=== PATIENT | male | born 1935 | race Caucasian/White ===

== ENCOUNTER → 2018-05-12 | Outpatient (CLI) | payer MEDICARE ==
[~2018-05-12] VITALS: Ht 160 cm; Wt 83.0 kg
[~2018-05-12] MED LIST: ATOR40TA70 PO; FAMO20TA3 PO; LOSA50TA63 PO; METO-387 PO; TAMS0.4C98 PO
== END ==
LOC: PREOP 05:42
PROVIDERS: ATTEND Specialist
DX: Z01.818 Encounter for other preprocedural examination (principal)

== ENCOUNTER 2018-05-14 08:10 | Day surgery (SDC) | payer MEDICARE ==
[~2018-05-14] VITALS: Ht 160 cm; Wt 83.0 kg
[2018-05-14 08:54] VITALS: BP 152/99
[2018-05-14] MEDS ORDERED: POVIDONE (BETADINE) OPHTH SOLN 5% 30 ML OP ONE (09:00)
[2018-05-14] MEDS ORDERED: LIDOCAINE PF 1% 2 ML AMP IR PRN (09:00)
[2018-05-14] MEDS ORDERED: TIMOLOL MALEATE 0.5% 5 ML (TIMOPTIC) BTL OU PRN (09:00)
[2018-05-14] MEDS ORDERED: MOXIFLOXACIN OPHTH SOLN 5 MG/ML 0.3 ML SYRINGE OP ONE (09:00)
[2018-05-14] MEDS: TETRACAINE 0.5% OPHTH SOLN 4 ML BTL (SINGLE DOSE ONLY) OU PRN ×4 (09:04→09:25)
[2018-05-14] MEDS: PHENYLEPHRINE 10% OPHTH (NEO-SYN) 5 ML BTL OU SCH ×3 (09:12→09:25)
[2018-05-14] MEDS: CYCLOPENTOLATE 1% (CYCLOGYL) 2 ML DROPS OP SCH ×3 (09:12→09:25)
[2018-05-14] MEDS ORDERED: MIDAZOLAM 2 MG/2 ML (VERSED) VIAL ONE (09:18)
--- NOTE | 2018-05-14 09:32 | Ophthalmologist Pre-Op Note ---
Pre-Operative Progress Note H&P Reviewed The H&P was reviewed, patient examined and no changes noted. Date H&P Reviewed: May 14, 2018 Time H&P Reviewed: 09:32 Pre-Op Dx Cataract, Left Eye MARK GAN MD May 14, 2018 09:32
--- NOTE | 2018-05-14 09:59 | Ophthalmology Operative Report ---
Cataract, Miotic Pupil PREOPERATIVE DIAGNOSIS: 1. Cataract Left Eye 2. Miotic Pupil/IFIS POSTOPERATIVE DIAGNOSIS: 1. Cataract Left Eye 2. Miotic Pupil/IFIS PROCEDURE: 1. Cataract removal and placement of posterior chamber implant, left eye 2. Pupillary expansion with malyugin ring SURGEON: Marco Antonio Gan ANESTHESIA: Topical with sedation COMPLICATIONS: None ESTIMATED BLOOD LOSS: Minimal DESCRIPTION OF PROCEDURE: After proper informed consent was obtained, the patient, a 82 male, was taken to the Operating Room and the left eye was anesthetized with Tetracaine. The eye was then prepped and draped in the usual manner. A wire lid speculum was placed. A paracentesis was made at the left hand position. Preservative free lidocaine was injected into anterior chamber followed by viscoelastic. A clear corneal incision was made in the temporal position. The malyugin ring was injected into the anterior chamber and the pupil was dilated. A capsulorrhexis was preformed and the central nuclear and cortical material were removed. The posterior capsule was polished and Earle [id number] IOL was placed into the capsular bag. The myalgian ring was removed. The residual viscoelastic was aspirated and the balanced saline solution was injected into the anterior chamber. Moxifloxacin was injected into the anterior chamber. The wound was checked and found to be water tight. The patient tolerated the procedure well without complications. [Limbal Relaxing Incision placed ] [ ]mm at [ ]. MARCO ANTONIO GAN MD May 14, 2018 09:59
[2018-05-14 10:12] VITALS: BP 163/93
[2018-05-14] MEDS ORDERED: acetaZOLAMIDE ER 500 MG CAP (DIAMOX SEQUELS) PO ONE (10:30)
--- NOTE | 2018-05-14 12:14 | Anesthesia-General Post-Op ---
MAC Patient Condition Mental Status/LOC: Same as Preop Cardiovascular: Satisfactory Nausea/Vomiting: Absent Respiratory: Satisfactory Pain: Controlled Complications: Absent Post Op Complications Complications None Follow Up Care/Instructions Patient Instructions None needed. Anesthesiology Discharge Order Discharge Order Patient is doing well, no complaints, stable vital signs, no apparent adverse anesthesia problems. No complications reported per nursing. RONEN MONTALVO CRNA May 14, 2018 12:14
--- OUTSIDE RECORDS SUMMARY | 2018-05-16 08:50 | XMS REPORT ---
Author Author KISHA ANDINO [facility] Address [address] [place] [address] Care Team Providers Care Adjunct Professor Name Role Phone KISHA ANDINO Unavailable PROBLEMS Type Condition ICD9-CM Code UHV05-DF Code Onset Dates Condition Status SNOMED Code Problem Urinary urgency R39.15 Active 46437883 Problem Encounter for Zostavax administration Z23 Active 912254199 Problem Colonoscopy refused Z53.20 Active 620015182 Problem Hypertension, essential I10 Active 42792887 ALLERGIES No Information SOCIAL HISTORY Never Assessed PLAN OF CARE VITAL SIGNS MEDICATIONS Medication Instructions Dosage Frequency Start Date End Date Duration Status Atorvastatin Calcium 40 mg Orally Once a day 1 tablet 24h Aug, 0 days Active Famotidine 20 mg Orally 2 times a day 1 tablet 12h 0 days Active RESULTS No Results PROCEDURES No Known procedures IMMUNIZATIONS No Known Immunizations MEDICAL (GENERAL) HISTORY Type Description Date Medical History cardiovascular disorder CT 2012 Medical History hypertension Medical History diverticulitis Medical History urologic disorder, enlarged prostate Medical History CAD Medical History hyperlipidemia Surgical History cholecystectomy 2001 Surgical History hernia repair 07/2013 Surgical History coronary angiography 2012 Hospitalization History dehydration and acute renal failure 09/2013 Hospitalization History hernia 2012 Hospitalization History heart attack 2012
--- OUTSIDE RECORDS SUMMARY | 2018-05-16 08:51 | XMS REPORT ---
Author Author KISHA ANDINO [facility] eClinicalWorks Address Unknown Phone Unavailable Care Team Providers Care Group Work Program Aide Name Role Phone KISHA ANDINO CP Unavailable Allergies, Adverse Reactions, Alerts Substance Reaction Event Type N.K.D.A. Info Not Available Non Drug Allergy Problems Problem Type Condition ICD-9 Code Onset Dates Condition Status Problem Need for prophylactic vaccination and inoculation, Influenza V04.81 Active Problem Coronary atherosclerosis of unspecified type of vessel, grayling or graft 414.00 Active Problem Counseling on substance use and abuse V65.42 Active Problem Hyperlipidemia 272.4 Active Assessment Tobacco abuse 305.1 Active Problem Counseling on injury prevention V65.43 Active Assessment Tobacco abuse counseling V65.42 Active Problem Hypertension, essential 401.9 Active Problem Unspecified urinary incontinence 788.30 Active Problem 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 Active Problem Dizziness and giddiness 780.4 Active Problem Unspecified essential hypertension 401.9 Active Problem Unspecified acute renal failure 584.9 Active Problem Pain in soft tissues of limb 729.5 Active Assessment Influenza vaccine administered V04.81 Active Assessment Hypertension, essential 401.9 Active Problem Special screening for malignant neoplasms, colon V76.51 Active Problem Elevated blood pressure reading without diagnosis of hypertension 796.2 Active Problem Effusion of hand joint 719.04 Active Problem Inguinal hernia without mention of obstruction or gangrene, unilateral or unspecified, (not specified as recurrent) 550.90 Active Problem Overweight 278.02 Active Problem Hypertrophy (benign) of prostate without urinary obstruction and other lower urinary tract symptoms [LUTS] 600.00 Active Medications Medication Code System Code Instructions Start Date End Date Status Dosage Flomax [facility] [address]-14 0.4 MG Orally Once a day Mar 27, 2014 1 capsule Lisinopril [facility] [address]-22 20 MG Orally Once a day October 13, 2013 1 tablet Atorvastatin Calcium [facility] [address]-20 20 MG Orally Once a day August 16, 2014 1 tablet Famotidine [facility] 22877792506 20 MG take 1 tablet (20 mg) by oral route every 12 hours 20 mg twice daily Clopidogrel Bisulfate [facility] 30818772060 75 MG take 1 tablet (75 mg ) by oral route once daily 75 mg daily Aspir-81 [facility] [address]-81 Feb 24, 2013 by oral route one daily Metoprolol Succinate [facility] 0 25 mg oral Once a day May 26, 2014 1 tablet Procedures Procedure Coding System Code Date Office Visit, Est Pt., Level 3 CPT-4 95865 Nov 30, 2014 FLU VAC NO PRSV 4 [place] 3 YRS+ CPT-4 22988 Nov 30, 2014 [facility] V[facility] ESTABLISHED PATIENT CPT-4 G0467 Nov 30, 2014 SINGLE IMMUNIZATION ADMIN CPT-4 87983 Nov 30, 2014 Vital Signs Date/Time: Nov 30, 2014 Temperature 98 F Weight 164 lbs Height 66 in BMI 26.47 Index Blood Pressure Diastolic 90 mmHg Blood Pressure Systolic 150 mmHg Cardiac Monitoring Heart Rate 68 bpm Results No Known Results Immunizations Vaccine Administration Date FLUARIX QUAD (3 & UP)-2014Nov 30, 2014 Summary Purpose eClinicalWorks Submission
--- OUTSIDE RECORDS SUMMARY | 2018-05-16 08:51 | XMS REPORT ---
Author Author KISHA ANDINO [facility] eClinicalWorks Address Unknown Phone Unavailable Care Team Providers Care Bean Viner Name Role Phone KISHA ANDINO CP Unavailable Allergies, Adverse Reactions, Alerts Substance Reaction Event Type N.K.D.A. Info Not Available Non Drug Allergy Problems Problem Type Condition Code Onset Dates Condition Status Problem Encounter for Zostavax administration Z23 Active Problem Hypertension, essential I10 Active Problem Colonoscopy refused Z53.20 Active Assessment Encounter for Zostavax administration Z23 Active Assessment Encounter for immunization Z23 Active Assessment Hypertension, essential I10 Active Assessment Colonoscopy refused Z53.20 Active Medications Medication Code System Code Instructions Start Date End Date Status Dosage Zostavax [facility] [address]-70 70920 UNT/0.65ML Subcutaneous Once a day Dec as directed Metoprolol Succinate NDC 0 25 mg oral Once a day May 26, 2014 1 tablet Atorvastatin Calcium [facility] [address]-85 40 MG Orally Once a day August 16, 2014 1 tablet Famotidine [facility] 70846345859 20 MG take 1 tablet (20 mg) by oral route every 12 hours 20 mg twice daily Flomax [facility] [address]-28 0.4 MG Orally Once a day Mar 27, 2014 1 capsule Losartan Potassium [facility] [address]-93 50 MG Orally Once a day 1 tablet Procedures Procedure Coding System Code Date [facility] VISIT ESTABLISHED PATIENT CPT-4 G0467 Dec 26, 2015 Office Visit, Est Pt., Level 3 CPT-4 30578 Dec 26, 2015 [facility]-4 NOBLL Dec 26, 2015 FLUARIX QUAD P-FREE 3 AND UP .50 2015 CPT-4 49321 Dec 26, 2015 VENIPUNCT, ROUTINE* CPT-4 77851 Dec 26, 2015 SINGLE IMMUNIZATION ADMIN CPT-4 37073 Dec 26, 2015 Vital Signs Date/Time: Dec 26, 2015 Cardiac Monitoring Heart Rate 62 bpm Weight 178.3 lbs Height 66 in BMI 28.78 Index Blood Pressure Diastolic 94 mmHg Blood Pressure Systolic 160 mmHg Results Name Result Date Reference Range Unit Abnormality Flag ROUTINE VENIPUNCTURE Immunizations Vaccine Administration Date FLUARIX QUAD P-FREE 3 AND UP .50 2015Dec 26, 2015 Summary Purpose eClinicalWorks Submission
--- OUTSIDE RECORDS SUMMARY | 2018-05-16 08:51 | XMS REPORT ---
Author Author KISHA ANDINO Organization [facility] Address [address] [place] [address] Care Team Providers Care Crate Tier Name Role Phone KISHA ANDINO Unavailable PROBLEMS Type Condition ICD9-CM Code [id number] Code Onset Dates Condition Status SNOMED Code Problem Need for shingles vaccine Z23 Active 358652548 Problem Urinary urgency R39.15 Active 36465737 Problem Hypertension, essential I10 Active 73643689 Problem Encounter for Zostavax administration Z23 Active 371754692 Problem Colonoscopy refused Z53.20 Active 954836381 ALLERGIES No Known Allergies ENCOUNTERS Encounter Location Date Diagnosis [facility] [address] [id number] [id number] July, Hypertension, essential I10 [facility] [id number] [id number] July, Hypertension, essential I10 and Need for shingles vaccine Z23 [facility] [id number] [id number] July, [facility] [address] [id number][place] [id number] Jan, [facility] [id number][place] [id number] Jan, [facility] [address] [id number][place] [id number] Jan, Hypertension, essential I10 ; Colonoscopy refused Z53.20 and Encounter for immunization Z23 [facility] [address] [id number][place] [id number] Jun, Urinary urgency R39.15 and Hypertension, essential I10 [facility] [address] [id number][place] [id number] Jun, Hypertension, essential I10 [facility] [address] [id number][place] [id number] May, [facility] [address] [id number][place] [id number] May, Hypertension, essential I10 and Urinary urgency R39.15 [facility] [address] [id number][place] [address] May, Mixed hyperlipidemia E78.[address] [facility] [address] [id number][place] [id number] Jan, Hypertension, essential I10 [facility] [address] [id number][place] [id number] Dec, Hypertension, essential I10 ; Colonoscopy refused Z53.20 ; Encounter for Zostavax administration Z23 and Encounter for immunization Z23 [facility] [address] [id number][place] [id number] Dec, Hypertension, essential I10 and Mixed [facility] E78.2 [facility] [id number][place] [id number] Nov, Hypertension, essential 401.9 ; Influenza vaccine administered V04.81 ; Tobacco abuse 305.1 and Tobacco abuse counseling V65.[address] [facility] [address] [id number][place] [id number] Sep, [facility] [address] [id number], [place] [id number] Aug, Hyperlipidemia 272.[address] [facility] [address] [id number], [place] [id number] July, [facility] [address] [id number][place] [id number] July, [facility] [address] [facility] [id number] [place] [address] Jun, [facility] [address]00565100[place] [address] 13 Jun, 2014 [facility] [place] [facility] [address] [id number] [place] [address] 23 May, 2014 [facility] [place] [facility] [address] [id number] [place] [address] 23 May, 2014 [facility] [place] [facility] [address] [id number] [place] [address] 23 May, 2014 [facility] [place] [facility] [address] [id number] [place] [address] 23 May, 2014 [facility] [place] [facility] [address] [id number] [place] [address] 20 May, 2014 [facility] [place] [facility] [address] [id number] [place] [address] 20 May, 2014 [facility] [place] [facility] [address] [id number] [place] [address] 19 May, 2014 [facility] [place] [facility] [address] [id number] [place] [address] 19 May, 2014 [facility] [place] [facility] [address] [id number] [place] [address] May, [facility] [place] [facility] [address] [id number] [place] [address] May, [facility] [place] [facility] [address] [id number] [place] [address]209 May, [facility] [place] [facility] [address] [id number] [place] [address] May, [facility] [place] [facility] [address] [id number] [place] [address] Mar, [facility] [place] [facility] [address] [id number] [place] [address] Mar, [facility] [place] [facility] [address] [id number] [place] [address] Feb, [facility] [place] [facility] [address] [id number] [place] [address] Feb, [facility] [place] [facility] [address] [id number] [place] [address] Feb, [facility] [place] [facility] [address] [id number] [place] [address] Feb, [facility] [place] [facility] [address] [id number] [place] [address] Jan, [facility] [place] [facility] [address] [id number] [place] [address] Jan, [facility] [place] [facility] [address] [id number] [place] [address] Jan, [facility] [place] [facility] [address] [id number] [place] [address] Jan, [facility] [place] [facility] [address] [id number] [place] [address] Jan, [facility] [place] [facility] [address] [id number] [place] [address] Jan, [facility] [place] [facility] [address] [id number] [place] [address] Oct, [facility] [place] [facility] [address] [id number] [place] [address] Oct, [facility] [place] [facility] [address] [id number] [place] [address] Oct, [facility] [place] [facility] [address] [id number] [place] [address] Oct, [facility] [place] [facility] [address] [id number] [place] [address] Oct, [facility] [place] [facility] [address] [id number] [place] [address] Oct, [facility] [place] [facility] [address] [id number] [place] [address] Oct, [facility] [address] [id number] [place] [address] Sep, [facility] [address] [id number] [place] [address] Sep, [facility] [address] [id number] [place] [address] Sep, [facility] [address] [id number] [place] [address] Sep, [facility] [address] [id number] [place] [address] Aug, [facility] [address] [id number] [place] [address] Aug, [facility] [address] [id number] [place] [address] July, [facility] [address] [id number] [place] [address] July, [facility] [address] [id number] [place] [address] Mar, [facility] [address] [id number] [address] Mar, [facility] [address] [id number] [place] [address] Mar, [facility] [address] [id number] [place] [address] Feb, [facility] [address] [id number] [place] [address] Feb, [facility] [address] [id number] [id number] Feb, [facility] [address] [id number] [place] [address] Feb, [facility] [address] [id number] [address] Jan, [facility] [address] [facility] [id number] [place] [address] Jan, [facility] [address] [id number] [address] Jan, [facility] [address] [facility] [id number] [place] [address] Jan, [facility] [address] [facility] [id number] [place] [address] Nov, [facility] [address] [facility] [id number] [place] [address] Aug, [facility] [address] [id number] [address] Aug, IMMUNIZATIONS No Known Immunizations SOCIAL HISTORY Never Assessed REASON FOR VISIT blood pressure bferrisma PLAN OF CARE Activity Details Follow Up 6 Weeks Reason:b/p VITAL SIGNS Height 66 in 2017-08-11 Weight 181.9 lbs 2017-08-11 Temperature 98.8 degrees Fahrenheit 2017-08-11 Heart Rate 62 bpm 2017-08-11 Respiratory Rate 18 2017-08-11 Oximetry 95 % 2017-08-11 BMI 29.36 kg/m2 2017-08-11 Blood pressure systolic 144 mmHg 2017-08-11 Blood pressure diastolic 89 mmHg 2017-08-11 MEDICATIONS Medication Instructions Dosage Frequency Start Date End Date Duration Status Shingrix 50 mcg Intramuscular as directed 1 vial today and then repeat in 2- 6 months July, Active Famotidine 20 MG TAKE 1 TABLET BY MOUTH TWICE DAILY 90 Active Flomax 0.4 MG TAKE ONE CAPSULE BY MOUTH ONCE DAILY 30 30 Active Losartan Potassium 50 mg Orally Once a day 1 tablet 24h 90 days Active Metoprolol Succinate ER 25 MG Orally Once a day at bedtime 1 tablet 90 days Active Atorvastatin Calcium 40 mg Orally Once a day 1 tablet 24h 90 days Active Lisinopril 10 mg Orally Once a day 1 tablet 24h July, 30 day(s) Active RESULTS No Results PROCEDURES Procedure Date Ordered Result Body Site [facility] VISIT ESTABLISHED PATIENT August 11, 2017 INSTRUCTIONS MEDICATIONS ADMINISTERED No Known Medications MEDICAL (GENERAL) HISTORY Type Description Date Medical History cardiovascular disorder [place] 2012 Medical History hypertension Medical History diverticulitis Medical History urologic disorder, enlarged prostate Medical History CAD Medical History hyperlipidemia Medical History history of chicken pox as a child Surgical History cholecystectomy 2001 Surgical History hernia repair 07/2013 Surgical History coronary angiography 2012 Hospitalization History dehydration and acute renal failure 09/2013 Hospitalization History hernia 2012 Hospitalization History heart attack 2012
--- OUTSIDE RECORDS SUMMARY | 2018-05-16 08:51 | XMS REPORT ---
Author Author KISHA ANDINO Organization [facility] Address [address] [place] [address] Care Team Providers Care Lining Cleaner Name Role Phone KISHA ANDINO Unavailable PROBLEMS Type Condition ICD9-CM Code SQA27-BX Code Onset Dates Condition Status SNOMED Code Problem Need for shingles vaccine Z23 Active 662229218 Problem Urinary urgency R39.15 Active 35907076 Problem Hypertension, essential I10 Active 76196042 Problem Encounter for Zostavax administration Z23 Active 942755441 Problem Colonoscopy refused Z53.20 Active 058870433 ALLERGIES No Known Allergies ENCOUNTERS Encounter Location Date Diagnosis [facility] [address] [id number][place] [id number] July, Hypertension, essential I10 [facility] [address] [id number][place] [address] July, Hypertension, essential I10 and Need for shingles vaccine Z23 [facility] [address] [id number][place] [address] July, [facility] [address] [facility] [address] [id number][place] [id number] Jan, [facility] [address] [id number], [place] [address] Jan, [facility] [address] [id number], [place] [address] Jan, Hypertension, essential I10 ; Colonoscopy refused Z53.20 and Encounter for immunization Z23 [facility] [address] [id number], [place] [address] Jun, Urinary urgency R39.15 and Hypertension, essential I10 [facility] [address] [id number][place] [address] Jun, Hypertension, essential I10 [facility] [address] [id number], [place] [address] May, [facility] [address] [id number][place] [address] May, Hypertension, essential I10 and Urinary urgency R39.15 [facility] [address] [id number], [place] [address] May, Mixed hyperlipidemia E78.2 [facility] [address] [id number], [place] [address] Jan, Hypertension, essential I10 [facility]Y [address] [facility] [address] [id number], [place] [address] Dec, Hypertension, essential I10 ; Colonoscopy refused Z53.20 ; Encounter for Zostavax administration Z23 and Encounter for immunization Z23 [facility] [address] [id number], [place] [address] Dec, Hypertension, essential I10 and Mixed hyperlipidemia E78.2 [facility] [id number][place] [address] Nov, Hypertension, essential 401.9 ; Influenza vaccine administered V04.81 ; Tobacco abuse 305.1 and Tobacco abuse counseling V65.[address] [facility] [address] [id number], [place] [address] Sep, [facility] [address] [id number], [place] [address] Aug, Hyperlipidemia 272.4 [facility] [address] [id number], [place] [address] July, [facility] [address] [id number], [place] [address] July, [facility] [address] [facility] [id number] [address] [address] Jun, [facility] [address]00565100[place] [address] 13 Jun, 2014 [facility] [place] [facility] [address] [id number] [place] [address] 1244 23 May, 2014 [facility] [place] [facility] [address] [id number] [place] [address]- 3236 23 May, 2014 [facility] [place] [facility] [address] [id number] [place] [address]- 9[address] 23 May, 2014 [facility] [place] [facility] [address] [id number] [place] [address] 6[address] 23 May, 2014 [facility] [place] [facility] [address] [id number] [place] [address]- [address]37 20 May, 2014 [facility] [place] [facility] [address] [id number] [place] [address] 0220 20 May, 2014 [facility] [place] [facility] [address] [id number] [place] [address]- 0787 19 May, 2014 [facility] [place] [facility] [address] [id number] [place] [address]- 8922 19 May, 2014 [facility] [place] [facility] [address] [id number] [place] [address]- 6905 May, [facility] [place] [facility] [address] [id number] [place] [address] 2990 May, [facility] [place] [facility] [address] [id number] [place] [address] 8085 May, [facility] [place] [facility] [address] [id number] [place] [address] 8750 May, [facility] [place] [facility] [address] [id number] [place] [address]- [address]809 Mar, [facility] [place] [facility] [address] [id number] [place] [address]- 1403 Mar, [facility] [place] [facility] [address] [id number] [place] [address]- 0023 Feb, [facility] [place] [facility] [address] [id number] [place] [address] 1936 Feb, [facility] [place] [facility] [address] [id number] [place] [address]- 7297 Feb, [facility] [place] [facility] [address] [id number] [place] [address] Feb, [facility] [place] [facility] [address] [id number] [place] [address] Jan, [facility] [place] [facility] [address] [id number] [place] [address] 5894 Jan, [facility] [place] [facility] [address] [id number] [place] [address]- 6272 Jan, [facility] [place] [facility] [address] [id number] [place] [address] 2084 Jan, [facility] [place] [facility] [address] [id number] [place] [address]- 0809 Jan, [facility] [place] [facility] [address] [id number] [place] [address]- 2173 Jan, [facility] [place] [facility] [address] [id number] [place] [address] 3570 Oct, [facility] [place] [facility] [address] [id number] [place] [address] 9298 Oct, [facility] [place] [facility] [address] [id number] [place] [address]- 6215 Oct, [facility] [place] [facility] [address] [id number] [place] [address]- 5991 Oct, [facility] [place] [facility] [address] [id number] [place] [address]- 3525 Oct, [facility] [place] [facility] [address] [id number] [place] [address]- 0210 Oct, [facility] [place] [facility] [address] [id number] [place] [address]- 2990 Oct, [facility] [address] [id number] [place] [address]- 8441 Sep, [facility] [address] [id number] [place] [address]- 9486 Sep, [facility] [address] [id number] [place] [address]- 4857 Sep, [facility] [address] [id number] [place] [address]- 9959 Sep, [facility] [address] [id number] [place] [address]- 5253 Aug, [facility] [address] [id number] [place] [address]- 3935 Aug, [facility] [address] [id number] [place] [address]- [address]365 July, [facility] [address] [id number] [place] [address] 3837 July, [facility] [address] [id number] [place] [address]- 9331 Mar, [facility] [address] [id number] [address] Mar, [facility] [address] [id number][place] [address] 125[address] Mar, [facility] [address] [id number], [place] [address]- 7539 Feb, [facility] [address] [id number] [address] 1744 Feb, [facility] [address] [id number][place] [address] Feb, [facility] [address] [id number] [place] [address]- 4967 Feb, [facility] [address] [id number] [address] 94[address] Jan, [facility] [address] [facility] [id number], [place] [address] Jan, [facility] [address] [facility] [id number] [address] 4790 Jan, [facility] [address] [facility] [id number] [address] 9344 Jan, [facility] [address] [facility] [id number] [address] Nov, [facility] [address] [facility] [id number][place] [address] 2555 Aug, [facility] [address] [facility] [id number] [address] 4[address] Aug, IMMUNIZATIONS No Known Immunizations SOCIAL HISTORY Never Assessed REASON FOR VISIT Blood Pressure check up---JOSSE worrell PLAN OF CARE Activity Details Follow Up 4 Weeks Reason:HTN VITAL SIGNS Height 66 in 2017-07-30 Weight 186.2 lbs 2017-07-30 Temperature 97.1 degrees Fahrenheit 2017-07-30 Heart Rate 69 bpm 2017-07-30 Respiratory Rate 18 2017-07-30 BMI 30.05 kg/m2 2017-07-30 Blood pressure systolic 162 mmHg 2017-07-30 Blood pressure diastolic 100 mmHg 2017-07-30 MEDICATIONS Medication Instructions Dosage Frequency Start Date End Date Duration Status Lisinopril 10 mg Orally Once a day 1 tablet 24h July, 30 day(s) Active Atorvastatin Calcium 40 mg Orally Once a day 1 tablet 24h 90 days Active Losartan Potassium 50 mg Orally Once a day 1 tablet 24h 90 days Active Flomax 0.4 MG TAKE ONE CAPSULE BY MOUTH ONCE DAILY 30 30 Active Famotidine 20 MG TAKE 1 TABLET BY MOUTH TWICE DAILY 90 Active Metoprolol Succinate ER 25 MG Orally Once a day at bedtime 1 tablet 90 days Active Shingrix 50 mcg Intramuscular as directed 1 vial today and then repeat in 2- 6 months July, Active RESULTS No Results PROCEDURES Procedure Date Ordered Result Body Site [facility] VISIT ESTABLISHED PATIENT July 30, 2017 INSTRUCTIONS MEDICATIONS ADMINISTERED No Known Medications MEDICAL (GENERAL) HISTORY Type Description Date Medical History cardiovascular disorder [place] 2012 Medical History hypertension Medical History diverticulitis [...]
--- OUTSIDE RECORDS SUMMARY | 2018-05-16 08:51 | XMS REPORT ---
Author Author ALEXSANDRA Adhikari [facility] Address Unknown Phone Unavailable Care Team Providers Care Rubber Mixer Name Role Phone ALEXSANDRA Adhikari Unavailable Unavailable PROBLEMS Type Condition ICD9-CM Code NVS01-PX Code Onset Dates Condition Status SNOMED Code Problem Need for shingles vaccine Z23 Active 991903563 Problem Urinary urgency R39.15 Active 75079194 Problem Hypertension, essential I10 Active 87626258 Problem Encounter for Zostavax administration Z23 Active 485973322 Problem Colonoscopy refused Z53.20 Active 937983886 ALLERGIES No Information ENCOUNTERS Encounter Location Date Diagnosis [facility] [address] [id number][place] [id number] July, Hypertension, essential I10 [facility] [address] [id number], [place] [address] July, Hypertension, essential I10 and Need for shingles vaccine Z23 [facility] [address] [id number], [place] [address] July, [facility] [address] [id number], [place] [address] Jan, [facility] [address] [id number], [place] [address] Jan, [facility] [address] [id number] [place] [address] Jan, Hypertension, essential I10 ; Colonoscopy refused Z53.20 and Encounter for immunization Z23 [facility] [address] [id number] [place] [address] Jun, Urinary urgency R39.15 and Hypertension, essential I10 [facility] [address] [id number], [place] [address] Jun, Hypertension, essential I10 [facility] [address] [address] [id number], [place] [address] May, [facility] [address] [id number], [place] [address] 30 May, 2016 Hypertension, essential I10 and Urinary urgency R39.[address] [id number], [place] [address] May, Mixed hyperlipidemia E78.2 [facility] [address] [id number], [place] [address] Jan, Hypertension, essential I10 [facility]Y [address] [facility] [address] [id number], [place] [address] Dec, Hypertension, essential I10 ; Colonoscopy refused Z53.20 ; Encounter for Zostavax administration Z23 and Encounter for immunization Z23 [facility] [address] [id number], [place] [address] Dec, Hypertension, essential I10 and Mixed hyperlipidemia E78.2 [facility] [address] [id number][place] [address] Nov, Hypertension, essential 401.9 ; Influenza vaccine administered V04.81 ; Tobacco abuse 305.1 and Tobacco abuse counseling V65.42 [facility] [address] [id number], [place] [address] Sep, [facility] [address] [facility] [address] [id number], [place] [address] Aug, Hyperlipidemia 272.4 [facility] [address] [id number], [place] [address] July, [facility] [address] [id number], [place] [address] July, [facility] [address] [id number] [address] 8664 Jun, [facility] [address] [id number] [address]- [address]132 Jun, [facility] [address] [id number] [place] [address]- 8[address] 23 May, 2014 [facility] [address] [id number] [place] [address]- 1436 23 May, 2014 [facility] [place] [facility] [address] [id number] [place] [address]- 1916 23 May, 2014 [facility] [address] [id number] [place] [address]- 4766 23 May, 2014 [facility] [place] [facility] [address] [id number] [place] [address]- 2514 20 May, 2014 [facility] [address] [id number] [place] [address]- 1219 20 May, 2014 [facility] [address] [id number] [place] [address]- 7995 19 May, 2014 [facility] [address] [id number] [place] [address]- 8652 19 May, 2014 [facility] [address] [id number] [place] [address]- 2735 13 May, 2014 [facility] [place] [facility] [address] [id number] [place] [address]- 2264 13 May, 2014 [facility] [address] [id number] [place] [address]- 3440 11 May, 2014 [facility] [place] [facility] [address] [id number] [place] [address]- 7694 May, [facility] [place] [facility] [address] [id number] [place] [address]- 3404 Mar, [facility] [place] [facility] [address] [id number] [place] [address]- 6481 Mar, [facility] [place] [facility] [address] [id number] [place] [address]- 1086 Feb, [facility] [place] [facility] [address] [id number] [place] [address]- 3081 Feb, [facility] [place] [facility] [address] [id number] [place] [address]- 2195 Feb, [facility] [place] [facility] [address] [id number] [place] [address]- 1493 Feb, [facility] [place] [facility] [address] [id number] [place] [address]- 4979 Jan, [facility] [place] [facility] [address] [id number] [place] [address]- 7986 Jan, [facility] [place] [facility] [address] [id number] [place] [address]- 7124 Jan, [facility] [place] [facility] [address] [id number] [place] [address]- 4872 Jan, [facility] [place] [facility] [address] [id number] [place] [address]- 0631 Jan, [facility] [place] [facility] [address] [id number] [place] [address]- 4857 Jan, [facility] [place] [facility] [address] [id number] [place] [address]- 6608 Oct, [facility] [place] [facility] [address] [id number] [place] [address]- 7226 Oct, [facility] [place] [facility] [address] [id number] [place] [address]- 7261 Oct, [facility] [place] [facility] [address] [id number] [place] [address]- 8831 Oct, [facility] [place] [facility] [address] [id number] [place] [address]- 5989 Oct, [facility] [place] [facility] [address] [id number] [place] [address]- 5786 Oct, [facility] [place] [facility] [address] [id number] [place]- 8729 Oct, [facility] [place] [facility] [address] [id number] [place] [address]- 2109 Sep, [facility] [place] [facility] [address] [id number] [place] [address]- 9893 Sep, [facility] [place] [facility] [address] [id number] [place] [address]- 3250 Sep, [facility] [place] [facility] [address] [id number] [place] [address]- 3758 Sep, [facility] [place] [facility] [address] [id number] [place] [address]- 8403 Aug, [facility] [place] [facility] [address] [id number] [place] [address]- 5824 Aug, [facility] [place] [facility] [address] [id number] [place] [address]- 1639 July, [facility] [place] [facility] [address] [id number] [place] [address]- 3315 July, [facility] [place] [facility] [address] [id number] [place] [address]- 7444 Mar, [facility] [place] [facility] [address] [id number] [place] [address]- 4553 Mar, [facility] [address] [id number] [place] [address]- 1100 Mar, [facility] [place] [facility] [address] [id number][place] [address]- 1322 Feb, [facility] [place] [facility] [address] [id number][place] [address]- 5190 Feb, [facility] [address] [id number] [place] [id number] Feb, [facility] [place] [facility] [address] [id number], [place] [address]- 2836 Feb, [facility] [place] [facility] [address] [id number] [place] [address]- 8973 Jan, [facility] [place] [facility] [address] [facility] [id number][place] [address]- 2546 Jan, [facility] [address] [id number] [address]- 1579 Jan, [facility] [address]00565100[place], [place] [address] 2546 Jan, [facility] [address] [id number], [place] [address]- 1314 Nov, [facility] [address] [id number], [place] [address]- 4713 Aug, [facility] [address]65100[place] [address] 3017 Aug, IMMUNIZATIONS No Known Immunizations SOCIAL HISTORY Never Assessed REASON FOR VISIT [facility] Contact PLAN OF CARE Activity Details Follow Up Pt. may use services at need. Reason: VITAL SIGNS MEDICATIONS Unknown Medications RESULTS No Results PROCEDURES No Known procedures INSTRUCTIONS MEDICATIONS ADMINISTERED No Known Medications MEDICAL (GENERAL) HISTORY Type Description Date Medical History cardiovascular disorder [place] 2012 Medical History hypertension Medical History diverticulitis [...]
--- OUTSIDE RECORDS SUMMARY | 2018-05-16 08:52 | XMS REPORT | Continuity of Care Document ---
Author Author [facility] Ctr of [facility] C[facility] of [facility] Address Unknown Phone Unavailable Allergies Active Description Code Type Severity Reaction Onset Reported/Identified Relationship to Patient Clinical Status Yes No Known Drug Allergies [id number] Drug Allergy Unknown N/A 05/12/2018 Medications There is no data. Problems Date Dx Coded Attending Type Code Diagnosis Diagnosed By 09/03/2011 550.90 HERNIA INGUINAL 09/03/2011 796.2 ELEVATED BLOOD PRESSURE READING WITHOUT DIAGNOSIS OF HYPERTENSION 09/03/2011 SOWMYA LEONARD DOA K 550.90 HERNIA INGUINAL 09/03/2011 SOWMYA LEONARD DOA K 796.2 ELEVATED BLOOD PRESSURE READING WITHOUT DIAGNOSIS OF HYPERTENSION 09/03/2011 KISHA ANDINO APRN L 550.90 HERNIA INGUINAL 09/03/2011 MICHELLE ANDINO APRNSON L 796.2 ELEVATED BLOOD PRESSURE READING WITHOUT DIAGNOSIS OF HYPERTENSION 09/03/2011 EATMICHELLE PELLETIER APRNSON L 550.90 HERNIA INGUINAL 09/03/2011 EATMICHELLE PELLETIER APRNSON L 796.2 ELEVATED BLOOD PRESSURE READING WITHOUT DIAGNOSIS OF HYPERTENSION 09/03/2011 LEONARD DO MAGDY K 550.90 HERNIA INGUINAL 09/03/2011 LEONARD DO MAGDY K 796.2 ELEVATED BLOOD PRESSURE READING WITHOUT DIAGNOSIS OF HYPERTENSION 09/03/2011 LEONARD SOWMYA NELSONA K 550.90 HERNIA INGUINAL 09/03/2011 LEONARD SOWMYA NELSONA K 796.2 ELEVATED BLOOD PRESSURE READING WITHOUT DIAGNOSIS OF HYPERTENSION 09/03/2011 IVON CHILDRESS APRN R 550.90 HERNIA INGUINAL 09/03/2011 KALEN CHILDRESS APRNIA R 796.2 ELEVATED BLOOD PRESSURE READING WITHOUT DIAGNOSIS OF HYPERTENSION 09/03/2011 MICHELLE ANDINO APRNSON L 550.90 HERNIA INGUINAL 09/03/2011 EATMICHELLE PELLETIER APRNSON L 796.2 ELEVATED BLOOD PRESSURE READING WITHOUT DIAGNOSIS OF HYPERTENSION 09/03/2011 RENETTA ROSS APRN 550.90 HERNIA INGUINAL 09/03/2011 RENETTA ROSS APRN 796.2 ELEVATED BLOOD PRESSURE READING WITHOUT DIAGNOSIS OF HYPERTENSION 02/04/2012 278.02 Overweight 02/04/2012 V76.51 visit for: screening malignant neoplasm colon 02/04/2012 LEONARD DO MAGDY K 278.02 Overweight 02/04/2012 LEONARD DO MAGDY K V76.51 visit for: screening malignant neoplasm colon 02/04/2012 THU HAILENMICHELLEKISHA L 278.02 Overweight 02/04/2012 THU HAILEDaisy KISHA L V76.51 visit for: screening malignant neoplasm colon 02/04/2012 THU HAILENMICHELLEKISHA L 278.02 Overweight 02/04/2012 THU HAILEDaisy KISHA L V76.51 visit for: screening malignant neoplasm colon 02/04/2012 LEONARD DO MAGDY K 278.02 Overweight 02/04/2012 LEONARD DO MAGDY K V76.51 visit for: screening malignant neoplasm colon 02/04/2012 HORACIO NELSON MAGDY K 278.02 Overweight 02/04/2012 LEONARD DO MAGDY K V76.51 visit for: screening malignant neoplasm colon 02/04/2012 IVON CHILDRESS APRN R 278.02 Overweight 02/04/2012 IVON CHILDRESS APRN R V76.51 visit for: screening malignant neoplasm colon 02/04/2012 THU HAILEDaisy KISHA L 278.02 Overweight 02/04/2012 THU HAILEDaisy KISHA L V76.51 visit for: screening malignant neoplasm colon 02/04/2012 RENETTA ROSS APRN 278.02 Overweight 02/04/2012 RENETTA ROSS APRN V76.51 visit for: screening malignant neoplasm colon 02/24/2013 SOWMYA LEONARD DOA K 305.1 TOBACCO ABUSE 02/24/2013 HORACIO NELSON MAGDY K 401.9 HYPERTENSION, UNSPECIFIED ESSENTIAL 02/24/2013 HORACIO NELSON MAGDY K 414.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 02/24/2013 SOWMYA LEONARD DOA K 780.4 DIZZINESS AND VERTIGO 02/24/2013 HORACIO NELSON MAGDY K 788.30 URINARY INCONTINENCE UNSPECIFIED 02/24/2013 HORACIO NELSON MAGDY K V65.42 TOBACCO COUNSELING 02/24/2013 HORACIO NELSON MAGDY K V65.43 COUNSELING ON INJURY PREVENTION 02/24/2013 KISHA ANDINO APRN L 305.1 TOBACCO ABUSE 02/24/2013 THU ENTRY LEVEL ACCOUNTING CLERKMICHELLE VillaSON L 401.9 HYPERTENSION, UNSPECIFIED ESSENTIAL 02/24/2013 EATON ENTRY LEVEL ACCOUNTING CLERKMICHELLE VillaSON L 414.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 02/24/2013 SHERRION ENTRY LEVEL ACCOUNTING CLERKMICHELLE VillaSON L 780.4 DIZZINESS AND VERTIGO 02/24/2013 EATON ENTRY LEVEL ACCOUNTING CLERKMICHELLE VillaSON L 788.30 URINARY INCONTINENCE UNSPECIFIED 02/24/2013 EATON ENTRY LEVEL ACCOUNTING CLERKMICHELLE VillaSON L V65.42 TOBACCO COUNSELING 02/24/2013 EATON ENTRY LEVEL ACCOUNTING CLERKMICHELLEKISHA L V65.43 COUNSELING ON INJURY PREVENTION 02/24/2013 SHERRION ENTRY LEVEL ACCOUNTING CLERKMICHELLE VillaSON L 305.1 TOBACCO ABUSE 02/24/2013 SHERRION ENTRY LEVEL ACCOUNTING CLERKMICHELLE VillaSON L 401.9 HYPERTENSION, UNSPECIFIED ESSENTIAL 02/24/2013 EATON ENTRY LEVEL ACCOUNTING CLERKMICHELLEKISHA L 414.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 02/24/2013 SHERRION ENTRY LEVEL ACCOUNTING CLERKMICHELLE VillaSON L 780.4 DIZZINESS AND VERTIGO 02/24/2013 SHERRION MICHELLE DISLASON L 788.30 URINARY INCONTINENCE UNSPECIFIED 02/24/2013 EATON ENTRY LEVEL ACCOUNTING CLERKMICHELLE VillaSON L V65.42 TOBACCO COUNSELING 02/24/2013 EATON ENTRY LEVEL ACCOUNTING CLERKMICHELLE VillaSON L V65.43 COUNSELING ON INJURY PREVENTION 02/24/2013 LEONARD DO, MAGDY K 305.1 TOBACCO ABUSE 02/24/2013 LEONARD DO, MAGDY K 401.9 HYPERTENSION, UNSPECIFIED ESSENTIAL 02/24/2013 LEONARD DO, MAGDY K 414.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 02/24/2013 LEONARD DO, MAGDY K 780.4 DIZZINESS AND VERTIGO 02/24/2013 LEONARD DO, MAGDY K 788.30 URINARY INCONTINENCE UNSPECIFIED 02/24/2013 LEONARD DO, MAGDY K V65.42 TOBACCO COUNSELING 02/24/2013 LEONARD DO, MAGDY K V65.43 COUNSELING ON INJURY PREVENTION 02/24/2013 LEONARD DO, MAGDY K 305.1 TOBACCO ABUSE 02/24/2013 LEONARD DO, MAGDY K 401.9 HYPERTENSION, UNSPECIFIED ESSENTIAL 02/24/2013 LEONARD DO, MAGDY K 414.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 02/24/2013 LEONARD DO, MAGDY K 780.4 DIZZINESS AND VERTIGO 02/24/2013 LEONARD DO, MAGDY K 788.30 URINARY INCONTINENCE UNSPECIFIED 02/24/2013 LEONARD DO, MAGDY K V65.42 TOBACCO COUNSELING 02/24/2013 LEONARD DO, MAGDY K V65.43 COUNSELING ON INJURY PREVENTION 02/24/2013 KALEN CHILDRESS APRNIA R 305.1 TOBACCO ABUSE 02/24/2013 ANTHONY CHILDRESS APRNRICIA R 401.9 HYPERTENSION, UNSPECIFIED ESSENTIAL 02/24/2013 CHILDRESS ENTRY LEVEL ACCOUNTING CLERK, IVON R 414.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 02/24/2013 KALEN CHILDRESS APRNIA R 780.4 DIZZINESS AND VERTIGO 02/24/2013 ANTHONY CHILDRESS APRNRICIA R 788.30 URINARY INCONTINENCE UNSPECIFIED 02/24/2013 KALEN CHILDRESS APRNIA R V65.42 TOBACCO COUNSELING 02/24/2013 KALEN CHILDRESS APRNIA R V65.43 COUNSELING ON INJURY PREVENTION 02/24/2013 KISHA ANDINO APRN L 305.1 TOBACCO ABUSE 02/24/2013 KISHA ANDINO APRN L 401.9 HYPERTENSION, UNSPECIFIED ESSENTIAL 02/24/2013 EATMICHELLE PELLETIER APRNSON L 414.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 02/24/2013 KISHA ANDINO APRN L 780.4 DIZZINESS AND VERTIGO 02/24/2013 KISHA ANDINO APRN L 788.30 URINARY INCONTINENCE UNSPECIFIED 02/24/2013 KISHA ANDINO APRN L V65.42 TOBACCO COUNSELING 02/24/2013 MICHELLE ANDINO APRNSON L V65.43 COUNSELING ON INJURY PREVENTION 10/13/2013 KISHA ANDINO APRN L 584.9 ACUTE KIDNEY FAILURE UNSPECIFIED 10/13/2013 LEONARD DO, MAGDY K 584.9 ACUTE KIDNEY FAILURE UNSPECIFIED 10/13/2013 LEONARD DO, MAGDY K 584.9 ACUTE KIDNEY FAILURE UNSPECIFIED 10/13/2013 CHILDRESS ANTHONY DISLARICIA R 584.9 ACUTE KIDNEY FAILURE UNSPECIFIED 10/13/2013 KISHA ANDINO APRN L 584.9 ACUTE KIDNEY FAILURE UNSPECIFIED 10/27/2013 LEONARD DO, MAGDY K 600.00 BPH W/O OBSTRUCTUION 10/27/2013 LEONARD DO, MAGDY K 600.00 BPH W/O OBSTRUCTUION 10/27/2013 ANTHONY CHILDRESS APRNRICIA R 600.00 BPH W/O OBSTRUCTUION 10/27/2013 KISHA ANDINO APRN L 600.00 BPH W/O OBSTRUCTUION 01/26/2014 MAGDY LEONARD DO K V04.81 FLU SHOT 01/26/2014 KALEN CHILDRESS APRNIA R V04.81 FLU SHOT 01/26/2014 KISHA ANDINO APRN L V04.81 FLU SHOT 03/10/2014 MONROE HAILEDaisy IVON R 719.04 EFFUSION OF HAND JOINT 03/10/2014 MONROE HAILEDaisy IVON R 729.5 PAIN IN LIMB 03/10/2014 KISHA ANDINO APRN L 719.04 EFFUSION OF HAND JOINT 03/10/2014 KISHA ANDINO APRN L 729.5 PAIN IN LIMB 05/14/2018 MALIK DAWKINS, MARK Escalante Ot Z01.818 ENCOUNTER FOR OTHER PREPROCEDURAL EXAMIN Procedures Code Description [place] [address] ROUTINE VENIPUNCTURE 02/13/2012 95954 CMP 02/13/2012 93976 LIPID PANEL 02/13/2012 45904 A1C (RML) 02/13/2012 99635 TSH 02/13/2012 48951 CBC 02/13/2012 21088 UA LONG DIP 02/24/2013 57882 ROUTINE VENIPUNCTURE 02/24/2013 25424 CMP 02/24/2013 99346 A1C (RML) 02/24/2013 69715 TSH 02/24/2013 69217 CBC 02/24/2013 29368 EKG, TRACING (IN-HOUSE) 02/24/2013 21025 OXIMETRY 02/24/2013 90017 ROUTINE VENIPUNCTURE 10/13/2013 88569 RENAL PROFILE 10/13/2013 35581 CBC 10/13/2013 37368 US VENOUS DOPPLER (DVT EVAL ) 03/10/2014 32100 ROUTINE VENIPUNCTURE 06/02/2014 69599 LIPID PANEL 06/02/2014 Results Test Result Range DIFFERENTIAL, MANUAL - 01/27/17 17:01 ABSOLUTE NEUTROPHILS 2822 cells/uL 8510-2828 ABSOLUTE MONOCYTES 410 cells/uL 200-950 ABSOLUTE EOSINOPHILS 296 cells/uL 15-500 ABSOLUTE BASOPHILS 57 cells/uL 0-200 NEUTROPHILS 49.5 % NRG LYMPHOCYTES 37.1 % NRG MONOCYTES 7.2 % NRG EOSINOPHILS 5.2 % NRG BASOPHILS 1.0 % NRG ABSOLUTE LYMPHOCYTES 2115 cells/uL 850-3900 PLATELET ESTIMATION ADEQUATE ADEQUATE CBC - 12/22/17 10:14 WHITE BLOOD CELL COUNT 5.3 Thousand/uL 3.8-10.8 RED BLOOD CELL COUNT 4.49 Million/uL 4.20-5.80 HEMOGLOBIN 13.2 g/dL 13.2-17.1 HEMATOCRIT 38.9 % 38.5-50.0 MCV 86.6 fL 80.0-100.0 MCH 29.4 pg 27.0-33.0 MCHC 33.9 g/dL 32.0-36.0 RDW 13.0 % 11.0-15.0 PLATELET COUNT 222 Thousand/uL 140-400 MPV 10.2 fL 7.5-12.5 ABSOLUTE NEUTROPHILS 3238 cells/uL 6821-2005 ABSOLUTE LYMPHOCYTES 1452 cells/uL 850-3900 ABSOLUTE MONOCYTES 440 cells/uL 200-950 ABSOLUTE EOSINOPHILS 138 cells/uL 15-500 ABSOLUTE BASOPHILS 32 cells/uL 0-200 NEUTROPHILS 61.1 % NRG LYMPHOCYTES 27.4 % NRG MONOCYTES 8.3 % NRG EOSINOPHILS 2.6 % NRG BASOPHILS 0.6 % NRG Encounters ACCT No. Visit Date/Time Discharge Status Pt. Type Provider Facility Loc./Unit Complaint [id number] 06/02/2014 09:32:00 06/02/2014 23:59:59 [facility] Outpatient KISHA ANDINO APRN [id number] 03/10/2014 11:21:00 03/10/2014 23:59:59 [facility] Outpatient IVON CHILDRESS APRN [id number] 01/26/2014 10:11:00 01/26/2014 23:59:59 [facility] Outpatient MAGDY LEONARD DO [id number] 10/27/2013 09:16:00 10/27/2013 23:59:59 CLS Outpatient MAGDY LEONARD DO [id number] 10/13/2013 07:51:00 10/13/2013 23:59:59 [facility] Outpatient KISHA ANDINO APRN [id number] 02/24/2013 11:11:00 02/24/2013 23:59:59 [facility] Outpatient KISHA ANDINO APRN [id number] 02/24/2013 11:11:00 02/24/2013 23:59:59 [facility] Outpatient MAGDY LEONARD DO [id number] 02/13/2012 11:15:00 02/13/2012 23:59:59 CLS Outpatient [id number] 02/04/2012 14:47:00 02/04/2012 23:59:59 CLS Outpatient RENETTA ROSS APRN [id number] 05/14/2018 08:10:00 05/14/2018 10:12:00 DIS Outpatient MARK GAN MD Via [facility] LEFT CATARACT [id number] 05/12/2018 05:42:00 05/12/2018 23:59:59 CLS Outpatient MARK GAN MD Via [facility] PREOP LEFT CATARACT [id number] 05/21/2018 10:30:00 PEN Preadmit MARK GAN MD Via [facility] CATARACT RIGHT EYE [id number] 04/14/2018 14:40:00 04/14/2018 23:59:59 [facility] [id number] 12/22/2017 10:00:00 Document Registration [id number] 01/27/2017 16:00:00 Document Registration
== END 2018-05-14 10:12 | disposition home or self-care (01) ==
LOC: SDC 08:10
PROVIDERS: ATTEND Specialist
DX: H25.12 Age-related nuclear cataract, left eye (principal); H57.03 Miosis; H21.81 Floppy iris syndrome; I25.10 Atherosclerotic heart disease of native coronary artery without angina pectoris; I10 Essential (primary) hypertension; Z95.5 Presence of coronary angioplasty implant and graft; Z79.899 Other long term (current) drug therapy; Z87.891 Personal history of nicotine dependence

== ENCOUNTER 2018-05-19 13:00 | Outpatient (CLI) | payer MEDICARE ==
[~2018-05-19] VITALS: Ht 160 cm; Wt 83.0 kg
== END 2018-05-19 13:29 | disposition home or self-care (01) ==
LOC: PREOP 13:00
PROVIDERS: ATTEND Specialist
DX: Z01.818 Encounter for other preprocedural examination (principal)

== ENCOUNTER 2018-05-21 08:45 | Day surgery (SDC) | payer MEDICARE ==
[~2018-05-21] VITALS: Ht 160 cm; Wt 83.0 kg
[2018-05-21 08:45] VITALS: BP 159/95
[2018-05-21] MEDS ORDERED: MOXIFLOXACIN OPHTH SOLN 5 MG/ML 0.3 ML SYRINGE OP ONE (09:00)
[2018-05-21] MEDS ORDERED: LIDOCAINE PF 1% 2 ML AMP IR PRN (09:00)
[2018-05-21] MEDS ORDERED: POVIDONE (BETADINE) OPHTH SOLN 5% 30 ML OP ONE (09:00)
[2018-05-21] MEDS ORDERED: TIMOLOL MALEATE 0.5% 5 ML (TIMOPTIC) BTL OU PRN (09:00)
[2018-05-21] MEDS: TETRACAINE 0.5% OPHTH SOLN 4 ML BTL (SINGLE DOSE ONLY) OU PRN ×4 (09:03→09:32)
--- OUTSIDE RECORDS SUMMARY | 2018-05-21 09:12 | XMS REPORT | Continuity of Care Document ---
Author Author [facility] Ctr of [facility] Ctr of [facility] Address Unknown Phone Unavailable Allergies Active Description Code Type Severity Reaction Onset Reported/Identified Relationship to Patient Clinical Status Yes No Known Drug Allergies [id number] Drug Allergy Unknown N/A 05/12/2018 Medications There [...] CORONARY ATHEROSCLEROSIS OF UNSPECIFIED TYPE OF VESSEL [place] OR GRAFT 02/24/2013 SOWMYA LEONARD DOA K 780.4 DIZZINESS AND VERTIGO 02/24/2013 HORACIO NELSON MAGDY K 788.30 URINARY INCONTINENCE UNSPECIFIED 02/24/2013 HORACIO NELSON MAGDY K V65.42 TOBACCO COUNSELING 02/24/2013 HORACIO NELSON MAGDY K V65.43 COUNSELING ON INJURY PREVENTION 02/24/2013 KISHA ANDINO APRN L 305.1 TOBACCO ABUSE 02/24/2013 THU SCRUB TECHNICIANMICHELLE VillaSON L 401.9 HYPERTENSION, UNSPECIFIED ESSENTIAL 02/24/2013 EATON SCRUB TECHNICIANMICHELLE VillaSON L 414.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 OF UNSPECIFIED TYPE OF VESSEL [place] OR GRAFT 02/24/2013 SHERRION SCRUB TECHNICIANMICHELLE VillaSON L 780.4 DIZZINESS AND VERTIGO 02/24/2013 EATON SCRUB TECHNICIANMICHELLE VillaSON L 788.30 URINARY INCONTINENCE UNSPECIFIED 02/24/2013 EATON SCRUB TECHNICIANMICHELLE VillaSON L V65.42 TOBACCO COUNSELING 02/24/2013 EATON SCRUB TECHNICIANMICHELLEKISHA L V65.43 COUNSELING ON INJURY PREVENTION 02/24/2013 SHERRION SCRUB TECHNICIANMICHELLE VillaSON L 305.1 TOBACCO ABUSE 02/24/2013 SHERRION SCRUB TECHNICIANMICHELLE VillaSON L 401.9 HYPERTENSION, UNSPECIFIED ESSENTIAL 02/24/2013 EATON SCRUB TECHNICIANMICHELLEKISHA L 414.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 OF UNSPECIFIED TYPE OF VESSEL [place] OR GRAFT 02/24/2013 SHERRION SCRUB TECHNICIANMICHELLE VillaSON L 780.4 DIZZINESS AND VERTIGO 02/24/2013 SHERRION MICHELLE DISLASON L 788.30 URINARY INCONTINENCE UNSPECIFIED 02/24/2013 EATON SCRUB TECHNICIANMICHELLE VillaSON L V65.42 TOBACCO COUNSELING 02/24/2013 EATON SCRUB TECHNICIANMICHELLE VillaSON L V65.43 COUNSELING ON INJURY PREVENTION 02/24/2013 LEONARD DO, MAGDY K 305.1 TOBACCO ABUSE 02/24/2013 LEONARD DO, MAGDY K 401.9 HYPERTENSION, UNSPECIFIED ESSENTIAL 02/24/2013 LEONARD DO, MAGDY K 414.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 OF UNSPECIFIED TYPE OF VESSEL [place] OR GRAFT 02/24/2013 LEONARD DO, MAGDY K [...] CORONARY ATHEROSCLEROSIS OF UNSPECIFIED TYPE OF VESSEL [place] OR GRAFT 02/24/2013 LENOARD DO, MAGDY K 780.4 DIZZINESS AND VERTIGO 02/24/2013 LEONARD DO, MAGDY K 788.30 URINARY INCONTINENCE UNSPECIFIED 02/24/2013 LEONARD DO, MAGDY K V65.42 TOBACCO COUNSELING 02/24/2013 LEONARD DO, MAGDY K V65.43 COUNSELING ON INJURY PREVENTION 02/24/2013 KALEN CHILDRESS APRNIA R 305.1 TOBACCO ABUSE 02/24/2013 ANTHONY CHILDRESS APRNRICIA R 401.9 HYPERTENSION, UNSPECIFIED ESSENTIAL 02/24/2013 CHILDRESS SCRUB TECHNICIAN, IVON R 414.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 OF UNSPECIFIED TYPE OF VESSEL GRINDSTONE OR GRAFT 02/24/2013 KALEN CHILDRESS APRNIA R [...] CORONARY ATHEROSCLEROSIS OF UNSPECIFIED TYPE OF VESSEL GRINDSTONE OR GRAFT 02/24/2013 KISHA ANDINO APRN L [...] LEONARD DO K V04.81 FLU SHOT 01/26/2014 CHILDRESS SCRUB TECHNICIAN, IVON R V04.81 FLU SHOT 01/26/2014 THU SCRUB TECHNICIANKISHA L V04.81 FLU SHOT 03/10/2014 CHILDRESS SCRUB TECHNICIAN, IVON R 719.04 EFFUSION OF HAND JOINT 03/10/2014 CHILDRESS SCRUB TECHNICIAN, IVON R 729.5 PAIN IN LIMB 03/10/2014 EATLIYAH SCRUB TECHNICIAN, KISHA L 719.04 EFFUSION OF HAND JOINT 03/10/2014 EATON SCRUB TECHNICIAN, KISHA L 729.5 PAIN IN LIMB 05/14/2018 MARK GAN MD Ot Z01.818 ENCOUNTER FOR OTHER PREPROCEDURAL EXAMIN 05/14/2018 MARK GAN MD Ot 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 05/14/2018 MARK GAN MD Ot H25.12 AGE-RELATED NUCLEAR CATARACT, LEFT EYE 05/14/2018 MARK GAN MD Ot H57.03 MIOSIS 05/14/2018 MARK GAN MD Ot I10 ESSENTIAL (PRIMARY) HYPERTENSION 05/14/2018 MARK GAN MD Ot I25.10 ATHSCL HEART DISEASE OF [place] CORONARY 05/14/2018 MARK GAN MD Ot Z79.899 OTHER INTERMEDIATE (CURRENT) DRUG THERAPY 05/14/2018 MARK GAN MD Ot Z87.891 PERSONAL HISTORY OF NICOTINE DEPENDENCE 05/14/2018 MARK GAN MD Ot Z95.5 PRESENCE OF CORONARY ANGIOPLASTY IMPLANT 05/18/2018 MARK GAN MD Ot Z01.818 ENCOUNTER FOR OTHER PREPROCEDURAL EXAMIN 05/18/2018 MARK GAN MD Ot 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 05/18/2018 MARK GAN MD Ot H25.12 AGE-RELATED NUCLEAR CATARACT, LEFT EYE 05/18/2018 MARK GAN MD Ot H57.03 MIOSIS 05/18/2018 MARK GAN MD Ot I10 ESSENTIAL (PRIMARY) HYPERTENSION 05/18/2018 MARK GAN MD Ot I25.10 ATHSCL HEART DISEASE OF [place] CORONARY 05/18/2018 MARK GAN MD Ot Z79.899 OTHER INTERMEDIATE (CURRENT) DRUG THERAPY 05/18/2018 MARK GAN MD Ot Z87.891 PERSONAL HISTORY OF NICOTINE DEPENDENCE 05/18/2018 MARK GAN MD Ot Z95.5 PRESENCE OF CORONARY ANGIOPLASTY IMPLANT 05/19/2018 MARK GAN MD Ot Z01.818 ENCOUNTER FOR OTHER PREPROCEDURAL EXAMIN 05/19/2018 MARK GAN MD, Ot Z01.818 ENCOUNTER FOR OTHER PREPROCEDURAL EXAMIN Procedures Code Description [place] [address] ROUTINE VENIPUNCTURE 02/13/2012 25233 CMP 02/13/2012 79469 LIPID PANEL 02/13/2012 64488 A1C (RML) 02/13/2012 89225 TSH 02/13/2012 17769 CBC 02/13/2012 10567 UA LONG DIP 02/24/2013 92464 ROUTINE VENIPUNCTURE 02/24/2013 08309 CMP 02/24/2013 16206 A1C (RML) 02/24/2013 24902 TSH 02/24/2013 71146 CBC 02/24/2013 59488 EKG, TRACING (IN-HOUSE) 02/24/2013 27654 OXIMETRY 02/24/2013 29375 ROUTINE VENIPUNCTURE 10/13/2013 70535 RENAL PROFILE 10/13/2013 83277 CBC 10/13/2013 07058 US VENOUS DOPPLER (DVT EVAL ) 03/10/2014 38554 ROUTINE VENIPUNCTURE 06/02/2014 69235 LIPID PANEL 06/02/2014 Results Test Result Range DIFFERENTIAL, MANUAL - 01/27/17 17:01 ABSOLUTE NEUTROPHILS 2822 cells/uL 0906-3790 ABSOLUTE MONOCYTES 410 cells/uL 200-950 ABSOLUTE EOSINOPHILS [...] 10.2 fL 7.5-12.5 ABSOLUTE NEUTROPHILS 3238 cells/uL 1022-4896 ABSOLUTE LYMPHOCYTES 1452 cells/uL 850-3900 ABSOLUTE MONOCYTES 440 cells/uL 200-950 ABSOLUTE EOSINOPHILS 138 cells/uL 15-500 ABSOLUTE BASOPHILS 32 cells/uL 0-200 NEUTROPHILS 61.1 % NRG LYMPHOCYTES 27.4 % NRG MONOCYTES 8.3 % NRG EOSINOPHILS 2.6 % NRG BASOPHILS 0.6 % NRG Encounters ACCT No. Visit Date/Time Discharge Status Pt. Type Provider Facility Loc./Unit Complaint [id number] 06/02/2014 09:32:00 06/02/2014 23:59:59 CLS Outpatient KISHA ANDINO APRN [id number] 03/10/2014 11:21:00 03/10/2014 23:59:59 CLS Outpatient IVON CHILDRESS APRN [id number] 01/26/2014 10:11:00 01/26/2014 23:59:59 CLS Outpatient MAGDY LEONARD DO [id number] 10/27/2013 09:16:00 10/27/2013 23:59:59 CLS Outpatient MAGDY LEONARD DO [id number] 10/13/2013 07:51:00 10/13/2013 23:59:59 CLS Outpatient KISHA ANDINO APRN [id number] 02/24/2013 11:11:00 02/24/2013 23:59:59 CLS Outpatient KISHA ANDINO APRN [id number] 02/24/2013 11:11:00 02/24/2013 23:59:59 CLS Outpatient MAGDY LEONARD DO [id number] 02/13/2012 11:15:00 02/13/2012 23:59:59 CLS Outpatient [id number] 02/04/2012 14:47:00 02/04/2012 23:59:59 CLS Outpatient DOLORES ROSS APRNNIFER Fátima [id number] 05/19/2018 13:00:00 05/19/2018 13:29:00 DIS Outpatient MARK GAN MD Via [facility] PREOP RIGHT CATARACT [id number] 05/14/2018 08:10:00 05/14/2018 10:12:00 DIS Outpatient MARK GAN MD Via [facility] LEFT CATARACT [id number] 05/12/2018 05:42:00 05/12/2018 23:59:59 CLS Outpatient MARK GAN MD Via [facility] PREOP LEFT CATARACT [id number] 05/21/2018 08:45:00 ACT Outpatient MARK GAN MD Via [facility] CATARACT RIGHT EYE [id number] 04/14/2018 14:40:00 04/14/2018 23:59:59 [facility] [id number] 12/22/2017 10:00:00 Document Registration [id number] 01/27/2017 16:00:00 Document Registration
[2018-05-21] MEDS: PHENYLEPHRINE 10% OPHTH (NEO-SYN) 5 ML BTL OU SCH ×3 (09:14→09:33)
[2018-05-21] MEDS: CYCLOPENTOLATE 1% (CYCLOGYL) 2 ML DROPS OP SCH ×3 (09:14→09:33)
--- NOTE | 2018-05-21 09:43 | Ophthalmologist Pre-Op Note ---
Pre-Operative Progress Note H&P Reviewed The H&P was reviewed, patient examined and no changes noted. Date H&P Reviewed: May 21, 2018 Time H&P Reviewed: 09:43 Pre-Op Dx Cataract, Right Eye MARK GAN MD May 21, 2018 09:43
[2018-05-21] MEDS ORDERED: MIDAZOLAM 2 MG/2 ML (VERSED) VIAL ONE (09:48)
--- NOTE | 2018-05-21 10:12 | Ophthalmology Operative Report ---
Cataract, Miotic Pupil PREOPERATIVE DIAGNOSIS: 1. Cataract Right Eye 2. Miotic Pupil/IFIS POSTOPERATIVE DIAGNOSIS: 1. Cataract Right Eye 2. Miotic Pupil/IFIS PROCEDURE: 1. Cataract removal and placement of posterior chamber implant, right eye 2. Pupillary expansion with malyugin ring SURGEON: Marco Antonio Gan ANESTHESIA: Topical with sedation COMPLICATIONS: None ESTIMATED BLOOD LOSS: Minimal DESCRIPTION OF PROCEDURE: After proper informed consent was obtained, the patient, a 82 male, was taken to the Operating Room and the right eye was anesthetized with Tetracaine. The eye was then prepped and draped in the usual manner. A wire lid speculum was placed. A paracentesis was made at the left hand position. Preservative free lidocaine was injected into anterior chamber followed by viscoelastic. A clear corneal incision was made in the temporal position. The malyugin ring was injected into the anterior chamber and the pupil was dilated. A capsulorrhexis was preformed and the central nuclear and cortical material were removed. The posterior capsule was polished and Alcon19.0 [id number] IOL was placed into the capsular bag. The malyugin ring was removed. The residual viscoelastic was aspirated and the balanced saline solution was injected into the anterior chamber. Moxifloxacin was injected into the anterior chamber. The wound was checked and found to be water tight. The patient tolerated the procedure well without complications. MARCO ANTONIO GAN MD May 21, 2018 10:12
[2018-05-21 10:20] VITALS: BP 147/91
[2018-05-21] MEDS ORDERED: acetaZOLAMIDE ER 500 MG CAP (DIAMOX SEQUELS) PO ONE (10:30)
--- NOTE | 2018-05-21 11:01 | Anesthesia-General Post-Op ---
MAC Patient Condition Mental Status/LOC: Same as Preop Cardiovascular: Satisfactory Nausea/Vomiting: Absent Respiratory: Satisfactory Pain: Controlled Complications: Absent Post Op Complications Complications None Follow Up Care/Instructions Patient Instructions None needed. Anesthesiology Discharge Order Discharge Order Patient is doing well, no complaints, stable vital signs, no apparent adverse anesthesia problems. No complications reported per nursing. FAVIOLA OLIVER CRNA May 21, 2018 11:01
== END 2018-05-21 10:20 | disposition home or self-care (01) ==
LOC: SDC 08:45
PROVIDERS: ATTEND Specialist
DX: H25.11 Age-related nuclear cataract, right eye (principal); H57.03 Miosis; H21.81 Floppy iris syndrome; I25.10 Atherosclerotic heart disease of native coronary artery without angina pectoris; I10 Essential (primary) hypertension; Z95.5 Presence of coronary angioplasty implant and graft; Z79.899 Other long term (current) drug therapy; Z87.891 Personal history of nicotine dependence